=== PATIENT | female | born 2000 | race American Indian/Alaskan Native ===

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

== ENCOUNTER 2022-05-17 17:01 | Emergency (ER) | payer MEDICAID ==
[2022-05-17 19:22] LABS: Basophils % (Auto) 0.4 % (0.0-1.8); Eosinophils % (Auto) 0.2 % (0.0-4.3); Hematocrit 36.8 % (30.3-42.9); Hemoglobin 11.7 gm/dl (10.1-14.3); Lymphocytes # (Auto) 1.4 K/mm3 (1.2-5.4); Lymphocytes % (Auto) 14.6 % (13.4-35.0); Mean Corpuscular HGB Conc 32 % (30-34); Mean Corpuscular Volume 77 fl (79-97); Monocytes # (Auto) 1.2 K/mm3 (0.0-0.8); Monocytes % (Auto) 12.4 % (0.0-7.3); Platelet Count 260 K/mm3 (140-440); Red Blood Count 4.81 M/mm3 (3.65-5.03); Red Cell Distribution Width 14.7 % (13.2-15.2)
[2022-05-17 20:09] LABS: Alanine Aminotransferase 12 units/L (7-56); Albumin 4.3 g/dL (3.9-5); BUN/Creatinine Ratio 14; Blood Urea Nitrogen 7 mg/dL (7-17); Calcium 9.6 mg/dL (8.4-10.2); Hemolysis Index 4
[2022-05-17 21:04] LABS: Bilirubin,Urine NEG (Negative); Blood,Urine MOD (Negative); Color,Urine Straw (Yellow); Protein,Urine <15 mg/dL mg/dL (Negative); Urobilinogen,Urine < 2 mg/dL (<2.0)
[2022-05-17 21:05] LABS: Mucus,Urine FEW /HPF
[2022-05-18] MEDS ORDERED: SODIUM CHLORIDE 0.9% 1000 ML 1,000 ML IV ONE ×2 (03:27→06:58)
[2022-05-18] MEDS ORDERED: INSULIN REGULAR, HUMAN 100 UNITS/1 ML IV ONE (03:27)
[2022-05-18] MEDS ORDERED: KETOROLAC 30 MG/1 ML INJ IV ONE (03:27)
[2022-05-18] MEDS ORDERED: ONDANSETRON 4 MG/2 ML INJ IV ONE (03:27)
[2022-05-18] MEDS ORDERED: FAMOTIDINE 20 MG/2 ML INJ IV ONE (03:29)
--- NOTE | 2022-05-18 03:31 | Emergency Department Report ---
ED Abdominal Pain HPI - General Chief Complaint: Abdominal Pain Stated Complaint: VAGINAL DISCHARGE/ABD PAIN Time Seen by Provider: 05/18/22 02:20 Source: patient Mode of arrival: Ambulatory Limitations: No Limitations - History of Present Illness Initial Comments: 21year-old female history of diabetes presenting with abdominal pain x2 weeks. Patient describes her pain as sharp, all over her abdomen. Symptoms associated with nausea, vomiting and vaginal discharge. She denies being , she denies hematuria, no dysuria, no weakness dizziness headache or vision changes. MD Complaint: abdominal pain -: Gradual, week(s) Location: diffuse Radiation: none Migration to: no migration Severity scale (0 -10): 9 - Related Data Previous Rx's Medication Instructions Recorded Last Taken Type Nitrofurantoin [place]/M-Cryst 100 mg PO Q12HR 7 Days #14 capsule 07/10/21 Unknown Rx [Macrobid CAP] Acetaminophen/Codeine [Tylenol 1 tab PO Q8H PRN #8 tab 11/01/21 Unknown Rx /Codeine # 3 tab] Doxycycline Hyclate 100 mg PO BID 14 Days #28 tab 11/01/21 Unknown Rx Fluconazole [Diflucan TAB] 200 mg PO QDAY #2 tablet 11/01/21 Unknown Rx Ibuprofen [Motrin 800 MG tab] 800 mg PO Q8HR PRN #20 tablet 11/01/21 Unknown Rx metroNIDAZOLE [Flagyl] 500 mg PO Q12HR 7 Days #14 tab 11/01/21 Unknown Rx Fluconazole [Diflucan TAB] 200 mg PO QDAY #7 tablet 11/16/21 Unknown Rx Lidocaine Viscous 2% 5 ml MM Q3H PRN #120 udc 11/16/21 Unknown Rx metroNIDAZOLE [Flagyl] 500 mg PO ONCE #4 tab 11/16/21 Unknown Rx Acetaminophen/Codeine [Tylenol 1 tab PO Q6H PRN #12 tab 05/18/22 Unknown Rx /Codeine # 3 tab] Naproxen [Naprosyn] 375 mg PO BID PRN #20 tablet 05/18/22 Unknown Rx Promethazine HCl [Promethazine TAB] 12.5 mg PO Q6H PRN #15 tab 05/18/22 Unknown Rx cephALEXin [Keflex] 500 mg PO Q12HR #14 cap 05/18/22 Unknown Rx Allergies Allergy/AdvReac Type Severity Reaction Status Date / Time No Known Allergies Allergy Verified 05/18/22 05:23 ED Review of Systems ROS: Stated complaint: VAGINAL DISCHARGE/ABD PAIN Other details as noted in HPI Constitutional: chills, fever ENT: as per HPI Respiratory: denies: cough, shortness of breath Cardiovascular: denies: chest pain, palpitations Endocrine: denies: intolerance to cold, intolerance to heat Gastrointestinal: abdominal pain, nausea, vomiting. denies: diarrhea, constipation Genitourinary: discharge. denies: urgency, dysuria, frequency, hematuria Musculoskeletal: myalgia. denies: back pain, joint swelling Skin: denies: rash, lesions Neurological: denies: headache, weakness Psychiatric: denies: anxiety, homicidal thoughts, suicidal thoughts ED Past Medical Hx - Past Medical History Previous Medical History?: Yes Hx Diabetes: Yes Hx Asthma: No - Surgical History Past Surgical History?: No - Medications Home Medications: Home Medications Medication Instructions Recorded Confirmed Last Taken Type Nitrofurantoin [place]/M-Cryst 100 mg PO Q12HR 7 Days #14 capsule 07/10/21 Unknown Rx [Macrobid CAP] Acetaminophen/Codeine [Tylenol 1 tab PO Q8H PRN #8 tab 11/01/21 Unknown Rx /Codeine # 3 tab] Doxycycline Hyclate 100 mg PO BID 14 Days #28 tab 11/01/21 Unknown Rx Fluconazole [Diflucan TAB] 200 mg PO QDAY #2 tablet 11/01/21 Unknown Rx Ibuprofen [Motrin 800 MG tab] 800 mg PO Q8HR PRN #20 tablet 11/01/21 Unknown Rx metroNIDAZOLE [Flagyl] 500 mg PO Q12HR 7 Days #14 tab 11/01/21 Unknown Rx Fluconazole [Diflucan TAB] 200 mg PO QDAY #7 tablet 11/16/21 Unknown Rx Lidocaine Viscous 2% 5 ml MM Q3H PRN #120 udc 11/16/21 Unknown Rx metroNIDAZOLE [Flagyl] 500 mg PO ONCE #4 tab 11/16/21 Unknown Rx Acetaminophen/Codeine [Tylenol 1 tab PO Q6H PRN #12 tab 05/18/22 Unknown Rx /Codeine # 3 tab] Naproxen [Naprosyn] 375 mg PO BID PRN #20 tablet 05/18/22 Unknown Rx Promethazine HCl [Promethazine TAB] 12.5 mg PO Q6H PRN #15 tab 05/18/22 Unknown Rx cephALEXin [Keflex] 500 mg PO Q12HR #14 cap 05/18/22 Unknown Rx ED Physical Exam - General Limitations: No Limitations General appearance: alert, in no apparent distress - Head Head exam: Present: atraumatic - Eye Eye exam: Present: normal appearance - ENT ENT exam: Present: normal exam, normal orophraynx - Neck Neck exam: Present: normal inspection. Absent: tenderness - Respiratory Respiratory exam: Present: normal lung sounds bilaterally. Absent: respiratory distress - Cardiovascular Cardiovascular Exam: Present: regular rate, tachycardia - GI/Abdominal GI/Abdominal exam: Present: soft, tenderness (diffuse). Absent: distended - External exam: Present: other (No pelvic tenderness, no peritoneal) - Extremities Exam Extremities exam: Present: normal inspection, full ROM, normal capillary refill - Back Exam Back exam: Present: normal inspection, full ROM. Absent: tenderness - Neurological Exam Neurological exam: Present: alert, oriented X3 - Psychiatric Psychiatric exam: Present: normal affect, normal mood - Skin Skin exam: Present: warm, dry, intact ED Course Vital Signs 05/17/22 05/18/22 18:58 07:58 Temperature 101.8 F H 98.7 F Pulse Rate 118 H 92 H Respiratory 20 16 Rate Blood Pressure 109/49 122/72 [Right] O2 Sat by Pulse 99 99 Oximetry ED Medical Decision Making - Lab Data Result diagrams: 05/17/22 19:08 05/17/22 19:08 - Medical Decision Making 89-year-old female history of diabetes presents with abdominal pain nausea vomiting x1 week. Urinalysis is positive for blood positive WBCs positive for leukocytes coupled with fever, patient triggered SIRS however her CBC is reassuring, and she is not hypotensive. Symptoms improved during ED course, blood glucose also improved with fluid management and insulin. Patient given a dose of ceftriaxone here, urine culture pending, her wet prep is negative for trichomoniasis, bacterial vaginosis and yeast infection. Otherwise discharge patient with Keflex, pain management, antiemetics, and instructions for vaginitis including hygiene and following up with OB. At the time of discharge Patient remained stable nontoxic-appearing, afebrile, ambulating steadily without assistance. Gone over ED findings with patient as well as plan for follow-up. Also discussed return precautions with patient, all questions and concerns addressed. Patient is stable to be discharged follow-up outpatient. Audio voice dictation device used, hence the chart might contain some dictation errors, mispronunciations, wrong spelling and wrong verbiage. Critical care attestation.: If time is entered above; I have spent that time in minutes in the direct care of this critically ill patient, excluding procedure time. ED Disposition Clinical Impression: Hyperglycemia due to type 1 diabetes mellitus, Pyelonephritis, Febrile illness, acute Disposition: HOME / SELF CARE / HOMELESS Is pt being admited?: No Does the pt Need Aspirin: No Condition: Stable Instructions: Pyelonephritis, Adult, [id number], Diabetes Mellitus Type 2 in Adults (ED), Abdominal Pain (ED) Prescriptions: cephALEXin [Keflex] 500 mg PO Q12HR #14 cap Naproxen [Naprosyn] 375 mg PO BID PRN #20 tablet PRN Reason: PAIN Promethazine HCl [Promethazine TAB] 12.5 mg PO Q6H PRN #15 tab PRN Reason: Nausea Acetaminophen/Codeine [Tylenol /Codeine # 3 tab] 1 tab PO Q6H PRN #12 tab PRN Reason: Pain , Severe (7-10) Referrals: CECY SIMPSON MD [Staff Physician] - 3-5 Days RUPESH CABALLERO MD [Primary Care Provider] - 3-5 Days Forms: Work/School Release Form(ED)
[2022-05-18] MEDS ORDERED: MORPHINE 4 MG/1 ML INJ IV ONE (03:34)
[2022-05-18] MEDS ORDERED: INSULIN REGULAR, HUMAN 100 UNITS/1 ML ONE (05:37)
[2022-05-18] MEDS ORDERED: LIDOCAINE-MPF (1%) 10 MG/1 ML VIAL 5 ML INFILTRATI ONE (06:31)
[2022-05-18] MEDS ORDERED: cefTRIAXone/NS 1 GM/50 ML 1 GM/50 ML BAG IV ONE (06:31)
[2022-05-18] MEDS ORDERED: ACETAMINOPHEN 325 MG/10.15 ML ORAL LIQD UNIT DOSE PO ONE (06:58)
[2022-05-18 08:00] VITALS: BP 122/72
== END 2022-05-18 07:58 | disposition home or self-care (01) ==
LOC: ED 17:01
DX: E11.65 Type 2 diabetes mellitus with hyperglycemia (principal); N12 Tubulo-interstitial nephritis, not specified as acute or chronic; R50.9 Fever, unspecified; I10 Essential (primary) hypertension
CPT/HCPCS: 36415; 80053; 81001; 82962; 84703; 85025; 87086; 87210; 96361; 96374; 96375; 99283; J1885; J2270; J2405; J3490; Q9967; J1815